=== PATIENT | male | born 1995 | race Hispanic/Latino ===

== ENCOUNTER 2017-11-10 12:59 | Emergency (ER) | payer OTHER ==
[~2017-11-10] VITALS: Ht 185.4 cm; Wt 161.5 kg
[2017-11-10] MEDS ORDERED: IBUPROFEN 600 MG TAB PO STA (13:17)
[2017-11-10 14:17] VITALS: BP 127/63
== END 2017-11-10 13:50 | disposition home or self-care (01) ==
LOC: FSED 12:59
DX: M54.5 Low back pain (principal); S39.012A Strain of muscle, fascia and tendon of lower back, initial encounter; I10 Essential (primary) hypertension
CPT/HCPCS: 99283

== ENCOUNTER 2018-11-26 00:29 | Emergency (ER) | payer OTHER ==
[~2018-11-26] VITALS: Ht 185.4 cm; Wt 158.8 kg
--- NOTE | 2018-11-26 01:15 | Diagnostic Imaging Report ---
EXAMINATION: CHEST 2 VIEWS INDICATION: Chest pain. Shortness of breath. COMPARISON: None FINDINGS: TUBES and LINES: None. LUNGS: Lungs are well inflated. Lungs are clear. There is no evidence of pneumonia or pulmonary edema. PLEURA: No pleural effusion or pneumothorax. HEART AND MEDIASTINUM: The cardiomediastinal silhouette is unremarkable. BONES AND SOFT TISSUES: No acute osseous lesion. Soft tissues are unremarkable. UPPER ABDOMEN: No free air under the diaphragm. IMPRESSION: No acute thoracic abnormality. Signed by: Dr. Gagan Walden M.D. on 11/26/2018 1:12 AM
[2018-11-26 01:39] VITALS: BP 121/67
== END 2018-11-26 01:50 | disposition home or self-care (01) ==
LOC: ER 00:29
DX: R07.89 Other chest pain (principal); I10 Essential (primary) hypertension; M54.9 Dorsalgia, unspecified; G89.29 Other chronic pain; R73.03 Prediabetes; F17.210 Nicotine dependence, cigarettes, uncomplicated
CPT/HCPCS: 71046; 93005; 99283

== ENCOUNTER 2020-06-29 21:24 | Emergency (ER) | payer OTHER ==
[~2020-06-29] VITALS: Ht 185.4 cm; Wt 158.8 kg
[2020-06-29] MEDS ORDERED: DIPHENHYDRAMINE HCL 25 MG CAP PO ONE (22:30)
[2020-06-29] MEDS ORDERED: FAMOTIDINE 20 MG TAB PO ONE (22:30)
[2020-06-29] MEDS ORDERED: PREDNISONE 20 MG TAB PO ONE (22:30)
[2020-06-29] MEDS ORDERED: AUGMENTIN 875-1 EACH PO (22:34)
[2020-06-29] MEDS ORDERED: PREDNISONE20 MG PO (22:34)
[2020-06-29] MEDS ORDERED: FAMOTIDINE40 MG PO (22:34)
[2020-06-29] MEDS ORDERED: FAMOTIDINE 20 MG TAB ONE (22:42)
[2020-06-29] MEDS ORDERED: DIPHENHYDRAMINE HCL 25 MG CAP ONE (22:42)
[2020-06-29] MEDS ORDERED: PREDNISONE 20 MG TAB ONE (22:42)
== END 2020-06-29 23:59 | disposition home or self-care (01) ==
LOC: ER 22:28
DX: L25.9 Unspecified contact dermatitis, unspecified cause (principal); I10 Essential (primary) hypertension; M54.9 Dorsalgia, unspecified; G89.29 Other chronic pain
CPT/HCPCS: 99283; J7512

== ENCOUNTER 2020-12-06 16:23 | Emergency (ER) | payer OTHER ==
[~2020-12-06] VITALS: Ht 185.4 cm; Wt 142.0 kg
[~2020-12-06 16:23] MED LIST: AUGMENTIN 875-1 EACH PO; FAMOTIDINE40 MG PO; PREDNISONE20 MG PO
== END 2020-12-06 19:45 | disposition home or self-care (01) ==
LOC: ER 16:42
DX: S93.402A Sprain of unspecified ligament of left ankle, initial encounter (principal); W10.8XXA Fall (on) (from) other stairs and steps, initial encounter; Y93.01 Activity, walking, marching and hiking; Y92.89 Other specified places as the place of occurrence of the external cause; M54.9 Dorsalgia, unspecified; G89.29 Other chronic pain
CPT/HCPCS: 99283

== ENCOUNTER 2022-03-05 16:11 | Emergency (ER) | payer OTHER ==
[~2022-03-05] VITALS: Ht 185.4 cm; Wt 155.6 kg
[2022-03-05] MEDS ORDERED: LIDOCAINE 1% 10 ML MULTIDOSE VIAL IJ ONE (17:00)
[2022-03-05] MEDS ORDERED: TETANUS/DIPHTHERIA TOX ADULT 0.5 ML SYR IM ONE (17:00)
== END 2022-03-05 18:24 | disposition home or self-care (01) ==
LOC: ER 16:16
DX: S91.312A Laceration without foreign body, left foot, initial encounter (principal); W25.XXXA Contact with sharp glass, initial encounter; Y93.01 Activity, walking, marching and hiking; Y92.89 Other specified places as the place of occurrence of the external cause; K21.9 Gastro-esophageal reflux disease without esophagitis; M54.9 Dorsalgia, unspecified; G89.29 Other chronic pain
CPT/HCPCS: 90471; 90714; 99283